=== PATIENT | male | born 1945 | race Caucasian/White ===

== ENCOUNTER → 2024-08-21 | Outpatient (CLI) | payer MEDICARE ==
[2024-08-21 15:34] LABS: HCT 34.7 % (39.6-50.0); HGB 10.9 g/dL (13.0-17.0); MCH 31.2 pg (27.0-32.0); MCHC 31.4 g/dL (32.0-37.0); MCV 99.4 FL (80.0-97.0); NRBC Per 100 WBC 0 X 10*3/uL (0.00-0.01); Platelet Count 224 X 10*3/uL (140-440); RBC 3.49 X 10*6/uL (4.40-5.60); RDW 13.8 % (11.5-14.5); WBC 6.74 X 10*3/uL (4.50-10.00)
[2024-08-21 16:08] LABS: NT-Pro-B-Type Natriuretic Pept 751 pg/mL (0-450)
[2024-08-21 17:08] LABS: Triglycerides 60.80 mg/dL (0.00-149.00); VLDL Calculation 12.16 mg/dL (5.00-40.00)
[2024-08-21 17:16] LABS: BUN/Creat Ratio 21.54 Ratio (12.00-20.00); Blood Urea Nitrogen 28.0 mg/dL (9.0-27.0); Cholesterol 117.00 mg/dL (0.00-200.00); Glucose 133 mg/dL (70-110); HDL Cholesterol 59.60 mg/dL (40.00-60.00); LDL Cholesterol,Calculated 45.2 mg/dL (0.0-131.0)
[2024-08-21 17:17] LABS: ALT 26 U/L (10-49); AST 36 U/L (14-35); Anion Gap 12.90 mmol/L (4.00-12.00); Calcium 9.1 mg/dL (8.7-10.3); Carbon Dioxide 25.1 mmol/L (21.6-31.8); Chloride 101 mmol/L (96-109); Potassium 5.0 mmol/L (3.5-5.5); Sodium 139 mmol/L (135-145)
== END | disposition home or self-care (01) ==
LOC: LABWHC1 08:58
PROVIDERS: ATTEND Internal Medicine Cardiovascular Disease
DX: I50.9 Heart failure, unspecified (principal); E78.2 Mixed hyperlipidemia
CPT/HCPCS: 36415; 80048; 80061; 83880; 84443; 84450; 84460; 85027

== ENCOUNTER 2024-09-06 09:55 | Emergency (ER) | payer MEDICARE ==
[2024-09-06 10:11] VITALS: RESP 18
--- NOTE | 2024-09-06 10:32 | ED ---
Fall HPI - General Chief Complaint: Fall Stated Complaint: Fall/on thinners Time Seen by Provider: 09/06/24 10:29 Source: patient, RN notes reviewed Mode of arrival: ambulatory - History of Present Illness Initial Comments: 79-year-old male presenting for back pain status post fall 2 days ago. States he was walking out to his car to go to dinner when he slipped and fell on the porch, landing on his back. States since the fall he has been experiencing back pain from the mid to lower back exacerbated by movement. Also reports pain is worse with bumps in the car. He has been taking Tylenol which has helped relieve the pain. He is able to ambulate but with difficulty. Denies head injury or loss of consciousness. He does take Eliquis. Denies saddle anesthesia, loss of bowel or bladder control. Denies chest pain, shortness of breath, abdominal pain. - Related Data Previous Rx's Medication Instructions Recorded Acetaminophen-Codeine 300-30mg 1 tab PO Q4H PRN #20 tablet 09/06/24 [Tylenol #3] Lidocaine 4% Patch 1 patch TOPICAL DAILY PRN 7 Days 09/06/24 #7 patch Allergies Allergy/AdvReac Type Severity Reaction Status Date / Time [id number] Reductase AdvReac Unknown Verified 09/06/24 10:12 Inhibitor Childhood Review of Systems ROS Statement: Those systems with pertinent positive or pertinent negative responses have been documented in the HPI. ROS Other: All systems not noted in ROS Statement are negative. Past Medical History Past Medical History: Atrial Fibrillation, Chest Pain / Angina, Hyperlipidemia, Hypertension Additional Past Medical History / Comment(s): chronic back pain, PVD, type 2 diabetes, atherosclerotic heart disease, afib, carotid stenosis, cataracts, prostate cancer, gout, anemia, History of Any Multi-Drug Resistant Organisms: None Reported Additional Past Surgical History / Comment(s): coronary artery bypass, bilateral hernia repair, skin cancer removals, Past Psychological History: No Psychological Hx Reported Smoking Status: Former smoker Past Alcohol Use History: Occasional Past Drug Use History: None Reported General Exam Limitations: no limitations General appearance: alert, in no apparent distress Head exam: Present: atraumatic, normocephalic, normal inspection Eye exam: Present: normal appearance, PERRL, EOMI. Absent: scleral icterus, conjunctival injection, periorbital swelling ENT exam: Present: normal exam, mucous membranes moist Respiratory exam: Present: normal lung sounds bilaterally. Absent: respiratory distress, wheezes, rales, rhonchi, stridor, chest wall tenderness, accessory muscle use Cardiovascular Exam: Present: regular rate, normal rhythm, normal heart sounds. Absent: systolic murmur, diastolic murmur, rubs, gallop, clicks GI/Abdominal exam: Present: soft, normal bowel sounds. Absent: distended, tenderness, guarding, rebound, rigid Back exam: Present: normal inspection, full ROM, other (Full strength and range of motion of bilateral lower extremities. No saddle anesthesia. Full sensation and DP pulses bilaterally). Absent: tenderness, CVA tenderness (R), CVA tenderness (L), muscle spasm, paraspinal tenderness, vertebral tenderness Neurological exam: Present: alert, oriented X3 Psychiatric exam: Present: normal affect, normal mood Skin exam: Present: warm, dry, intact, normal color. Absent: rash Course Vital Signs 09/06/24 10:03 Temperature 97.4 F L Pulse Rate 71 Respiratory 18 Rate Blood Pressure 147/82 O2 Sat by Pulse 99 Oximetry Medical Decision Making - Medical Decision Making Was pt. sent in by a medical professional or institution (, PA, TELECOMMUNICATIONS NETWORK ENGINEER, urgent care, hospital, or longterm...) When possible be specific @ -No Did you speak to anyone other than the patient for history (EMS, parent, family, police, friend...)? What history was obtained from this source @ -No Did you review nursing and triage notes (agree or disagree)? Why? @ -I reviewed and agree with nursing and triage notes Were old charts reviewed (outside hosp., previous admission, EMS record, old EKG, old radiological studies, urgent care reports/EKG's, longterm records)? Report findings @ -No old charts were reviewed Differential Diagnosis (chest pain, altered mental status, abdominal pain women, abdominal pain men, vaginal bleeding, weakness, fever, dyspnea, syncope, headache, dizziness, GI bleed, back pain, seizure, CVA, palpatations, mental health, musculoskeletal)? @ -Differential Back Pain: Strain, zoster, cauda equina syndrome, epidural abscess, vertebral osteomyelitis, discitis, fracture, subluxation, disc herniation, DJD, spinal stenosis, dissection, AAA, pancreatitis, peptic ulcer disease, pyelonephritis, kidney stone, this is not meant to be an all-inclusive list. EKG interpreted by me (3pts min.). @ -None X-rays interpreted by me (1pt min.). @ -X-ray ribs, thoracic spine and lumbar spine reveals no acute fracture or dislocation CT interpreted by me (1pt min.). @ -None done U/S interpreted by me (1pt. min.). @ -None done What testing was considered but not performed or refused? (CT, X-rays, U/S, labs)? Why? @ -None What meds were considered but not given or refused? Why? @ -None Did you discuss the management of the patient with other professionals (professionals i.e. , PA, TELECOMMUNICATIONS NETWORK ENGINEER, lab, RT, psych nurse, social welfare research worker, molder, teacher, ski patrol officer, supportive employment case manager)? Give summary @ -No Was smoking cessation discussed for >3mins.? @ -No Was critical care preformed (if so, how long)? @ -No Were there social determinants of health that impacted care today? How? (Homelessness, low income, unemployed, alcoholism, drug addiction, tr ansportation, low edu. Level, literacy, decrease access to med. care, [facility], rehab)? @ -No Was there de-escalation of care discussed even if they declined (Discuss DNR or withdrawal of care, Hospice)? DNR status @ -No What co-morbidities impacted this encounter? (DM, HTN, Smoking, COPD, CAD, Cancer, CVA, ARF, Chemo, Hep., AIDS, mental health diagnosis, sleep apnea, morbid obesity)? @ -None Was patient admitted / discharged? Hospital course, mention meds given and route, prescriptions, significant lab abnormalities, going to OR and other pertinent info. @ -Discharge. 79-year-old male presenting for back pain status post fall 2 days ago. No head injury or loss of consciousness. No red flag symptoms. Neurovascularly intact to the bilateral lower extremities. Provided with Tylenol and lidocaine patch for supportive care. X-ray ribs, thoracic spine and lumbar spine identifies no fracture or dislocation. Results discussed with patient and family. Patient will be provided with appropriate analgesics. Appropriate return precautions and follow-up care discussed. Case was discussed with my ED attending Dr. Dillon. Undiagnosed new problem with uncertain prognosis? @ -No Drug Therapy requiring intensive monitoring for toxicity (Heparin, Nitro, Insulin, Cardizem)? @ -No Were any procedures done? @ -No Diagnosis/symptom? @ -Back strain Acute, or Chronic, or Acute on Chronic? @ -Acute Uncomplicated (without systemic symptoms) or Complicated (systemic symptoms)? @ -Uncomplicated Side effects of treatment? @ -No Exacerbation, Progression, or Severe Exacerbation? @ -No Poses a threat to life or bodily function? How? (Chest pain, [place], [place], pneumonia, PE, COPD, DKA, ARF, appy, cholecystitis, CVA, Diverticulitis, Homicidal, Suicidal, threat to staff... and all critical care pts) @ -No Disposition Clinical Impression: Back strain Disposition: HOME SELF-CARE Condition: Stable Instructions (If sedation given, give patient instructions): Fall Prevention for Older Adults (ED), Thoracic Back Strain (ED) Additional Instructions: Take Tylenol threes and use lidocaine patches as needed for pain. Please return to the Emergency Department if symptoms worsen or any other concerns. Prescriptions: Lidocaine 4% Patch 1 patch TOPICAL DAILY PRN 7 Days #7 patch PRN Reason: Pain Acetaminophen-Codeine 300-30mg [Tylenol #3] 1 tab PO Q4H PRN #20 tablet PRN Reason: pain Is patient prescribed a controlled substance at d/c from ED?: No Referrals: Nonstaff,Physician [Primary Care Provider] - 1-2 days Time of Disposition: 12:15
[2024-09-06] MEDS: LIDOCAINE 4% PATCH TOPICAL ONE (10:45)
[2024-09-06] MEDS: ACETAMINOPHEN TAB 500 MG TAB PO STA (10:47)
--- NOTE | 2024-09-06 11:31 | XR ---
EXAMINATION TYPE: XR lumbar spine 2 or 3V DATE OF EXAM: 09/06/2024 11:28 AM COMPARISON: None. CLINICAL INDICATION: Male, 79 years old with history of back pain s/p fall, TECHNIQUE: 3 views obtained FINDINGS: There are 5 lumbar type vertebral bodies identified. The lumbar spine shows satisfactory alignment without evidence of acute fracture or dislocation. Vertebral body heights are within normal limits. Moderate multilevel degenerative disc space narrowing and spondylosis. Moderate facet joint arthropathy. The overlying soft tissue appears unremarkable. IMPRESSION: No acute fracture or dislocation is seen in the lumbar spine.ICD 10 NO FRACTURE, INITIAL EVALUATION [facility], , 09/06/2024 11:29 AM
--- NOTE | 2024-09-06 11:32 | XR ---
EXAMINATION TYPE: XR thoracic spine complete DATE OF EXAM: 09/06/2024 11:28 AM COMPARISON: None. CLINICAL INDICATION: Male, 79 years old with history of back pain s/p fall, TECHNIQUE: Frontal, lateral, and swimmer's view of thoracic spine are obtained. FINDINGS: Thoracic spine show satisfactory alignment without evidence of acute fracture or dislocatio n. Vertebral body heights are preserved. Moderate multilevel degenerative disc space narrowing and s pondylolisthesis. Visualized ribs are unremarkable. IMPRESSION: No acute fracture or dislocation is seen in the thoracic spine. ICD 10 NO FRACTURE, INIT IAL EVALUATION [facility], , 09/06/2024 11:30 AM
--- NOTE | 2024-09-06 11:33 | XR ---
EXAMINATION TYPE: XR ribs bilat w pa chest xray DATE OF EXAM: 09/06/2024 11:28 AM COMPARISON: None. CLINICAL INDICATION: Male, 79 years old with history of back pain s/p fall, TECHNIQUE: Single view of the chest 8 views of the ribs are submitted. FINDINGS: The lungs are clear. No Evidence for pneumothorax. No evidence for focal contusion. Mediastinal st ructures are midline. Evaluation of the ribs fails to demonstrate evidence for displaced rib fractur e or secondary sign of rib fracture. IMPRESSION: Negative study [facility], , 09/06/2024 11:31 AM
[2024-09-06] MEDS: ACET/COD 300 MG/30 MG STARTER PACK TAB BTL PO STA (12:27)
[2024-09-06 12:37] VITALS: BP 138/76; PULSE 70; TEMP 97.7
== END 2024-09-06 12:37 | disposition home or self-care (01) ==
LOC: EC 09:55
DX: S39.012A Strain of muscle, fascia and tendon of lower back, initial encounter (principal); Z87.891 Personal history of nicotine dependence; Z88.8 Allergy status to other drugs, medicaments and biological substances; W01.0XXA Fall on same level from slipping, tripping and stumbling without subsequent striking against object, initial encounter; Y93.01 Activity, walking, marching and hiking
CPT/HCPCS: 71111; 72072; 72100; 99283